=== PATIENT | female | born 1995 | race Caucasian/White ===

== ENCOUNTER 2018-07-24 17:24 | Emergency (ER) | payer OTHER ==
[2018-07-24] MEDS ORDERED: NS 1,000 ML IV ONE (17:43)
[2018-07-24] MEDS ORDERED: HYDROmorphONE/DILAUDID 2 MG/ML INJ IVP ONE (17:43)
[2018-07-24] MEDS ORDERED: ONDANSETRON 4 MG/2 ML VIAL IVP ONE (17:43)
--- NOTE | 2018-07-24 17:46 | EDPHY ---
H & P Stated Complaint: abd pain Time Seen by Provider: 07/24/18 17:38 HPI/ROS: CHIEF COMPLAINT: Lower abdominal pain and urinary frequency HISTORY OF PRESENT ILLNESS: Patient is a 22-year-old female who noticed dysuria yesterday that is gradually worsened today she is having diffuse lower abdominal pain. She states that it hurts to lift her legs in the air or to go over bumps in the car. She states that she is peeing very frequently but has minimal amounts of urine. No nausea vomiting. No fever. No diarrhea. No rash. She has an IUD in place and denies risk of because her partner has vasectomy. No vaginal discharge or bleeding. She does not have periods because of her IUD. Severity: Severe Modifying factors: Movement REVIEW OF SYSTEMS: Constitutional: denies: chills, fever, recent illness, recent injury EENTM: denies: blurred vision, double vision, nose congestion Respiratory: denies: cough, shortness of breath Cardiac: denies: chest pain, irregular heart rate, lightheadedness, palpitations Gastrointestinal/Abdominal: See HPI Genitourinary: See HPI Musculoskeletal: denies: joint pain, muscle pain Skin: denies: lesions, rash, jaundice, bruising Neurological: denies: headache, numbness, paresthesia, tingling, dizziness, weakness Hematologic/Lymphatic: denies: blood clots, easy bleeding, easy bruising Immunologic/allergic: denies: HIV/AIDS, transplant 10 systems reviewed and negative except as noted EXAM: GENERAL: Moderate distress. HEAD: Atraumatic, normocephalic. EYES: Pupils equal round and reactive to light, extraocular movements intact, sclera anicteric, conjunctiva are normal. ENT: TMs normal, nares patent, oropharynx clear without exudates. Moist mucous membranes. NECK: Normal range of motion, supple without lymphadenopathy or JVD. LUNGS: Breath sounds clear to auscultation bilaterally and equal. No wheezes rales or rhonchi. HEART: Regular rate and rhythm without murmurs, rubs or gallops. ABDOMEN: Right and left lower quadrant tenderness, mild guarding. No upper abdominal tenderness. BACK: No CVA tenderness, no spinal tenderness, step-offs or deformities EXTREMITIES: Normal range of motion, no pitting or edema. No clubbing or cyanosis. NEUROLOGICAL: Cranial nerves II through XII grossly intact. Normal speech, normal gait. 5/5 strength, normal movement in all extremities, normal sensation , normal reflexes PSYCH: Normal mood, normal affect. SKIN: Warm, dry, normal turgor, no visible rashes or lesions. Source: Patient Exam Limitations: No limitations - Personal History LMP (Females 10-55): IUD In Place Current Tetanus/Diphtheria Vaccine: Yes - Medical/Surgical History Hx Asthma: No Hx Chronic Respiratory Disease: No Hx Diabetes: No Hx Cardiac Disease: No Hx Renal Disease: No Hx Cirrhosis: No Hx Alcoholism: No Other PMH: Denies - Family History Significant Family History: No pertinent family hx - Social History Smoking Status: Current some day smoker Alcohol Use: None Constitutional: Initial Vital Signs Temperature (C) 37.2 C 07/24/18 17:25 Heart Rate 98 07/24/18 17:25 Respiratory Rate 18 07/24/18 17:25 Blood Pressure 141/74 H 07/24/18 17:25 O2 Sat (%) 99 07/24/18 17:25 O2 Delivery Mode Room Air Allergies/Adverse Reactions: Morpholine Analogues Allergy (Verified 07/24/18 17:30) Home Medications: Medication Instructions Recorded Cephalexin [Keflex] 500 mg PO TID #30 cap 07/24/18 Phenazopyridine HCl [Pyridium] 200 mg PO TID #6 tab 07/24/18 Medical Decision Making - Diagnostics Imaging: Discussed imaging studies w/ call circuit worker Radiologist ED Course/Re-evaluation: Patient is feeling much better after IV fluids and antibiotics. I originally discussed admission with her because of elevated white count. Her lactate however is reassuring. She rib definitely does not want to be admitted because she left her child at home with drug and alcohol counsellor. Her ultrasound is reassuring. She is eager to go. We discussed indications for returning such as high fever or worsening symptoms. She agrees to this feels comfortable. Will also treat with Pyridium for pain. Differential Diagnosis: Partial list of the Differential diagnosis considered include but were not limited to; retract infection, appendicitis, ovarian cyst, ovarian torsion, and although unlikely based on the history and physical exam, I also considered voice, ischemia, obstruction, biliary disease, PID. - Data Points Laboratory Results: Laboratory Results 07/24/18 17:45 07/24/18 17:45 Microbiology Results: MICROBIOLOGY 07/24/18 18:15 Urine,Clean Catch Urine Culture - Preliminary Gram Neg Jose Lactose Executive Creative Director Medications Given: Discontinued Medications Hydromorphone HCl (Dilaudid) 0.5 mg IVP EDNOW ONE Stop: 07/24/18 17:44 Last Admin: 07/24/18 18:07 Dose: 0.5 mg Sodium Chloride (Ns) 1,000 mls @ 0 mls/hr IV EDNOW ONE; Wide Open PRN Reason: Protocol Stop: 07/24/18 17:44 Last Admin: 07/24/18 18:07 Dose: 1,000 mls Ceftriaxone Sodium/Dextrose (Rocephin 1 Gm (Premix)) 50 mls @ 100 mls/hr IV EDNOW ONE PRN Reason: Protocol Stop: 07/24/18 18:44 Last Admin: 07/24/18 18:40 Dose: 50 mls Sodium Chloride (Ns) 1,800 mls @ 300 mls/hr 30 ml/kg infuse over 6 hr (1800 ml ) IV EDNOW ONE PRN Reason: Protocol Stop: 07/25/18 00:14 Last Admin: 07/24/18 18:20 Dose: 1,800 mls Ondansetron HCl (Zofran) 4 mg IVP EDNOW ONE Stop: 07/24/18 17:44 Last Admin: 07/24/18 18:08 Dose: 4 mg Phenazopyridine HCl (Pyridium) 200 mg PO EDNOW ONE Stop: 07/24/18 19:39 Last Admin: 07/24/18 19:57 Dose: 200 mg Departure - Departure Disposition: Home, Routine, Self-Care Clinical Impression: Urinary tract infection Qualifiers: Urinary tract infection type: site unspecified Hematuria presence: without hematuria Qualified Code(s): N39.0 - Urinary tract infection, site not specified Condition: Fair Instructions: Urinary Tract Infection in Women (ED) Referrals: NONE *PRIMARY CARE P,. [Primary Care Provider] - As per Instructions Dacia Hawley MD [Medical Doctor] - As per Instructions Prescriptions: Cephalexin [Keflex] 500 mg PO TID #30 cap Phenazopyridine HCl [Pyridium] 200 mg PO TID #6 tab
[2018-07-24 18:01] LABS: PLATELET COUNT 249 10^3/uL (150-400)
[2018-07-24] MEDS ORDERED: NS 1,800 ML IV ONE (18:15)
[2018-07-24] MEDS ORDERED: PHENAZOPYRIDINE HCL 200 MG TAB PO ONE (19:38)
[2018-07-24 20:03] VITALS: BP 110/78
== END 2018-07-24 20:16 | disposition home or self-care (01) ==
DX: N39.0 Urinary tract infection, site not specified (principal); E86.9 Volume depletion, unspecified; Z97.5 Presence of (intrauterine) contraceptive device
CPT/HCPCS: 96365; J0696; J1170; J2405